=== PATIENT | female | born 1980 | race Caucasian/White ===

== ENCOUNTER 2016-02-09 17:48 | Inpatient (IN) | payer OTHER, BC ==
[2016-02-09] MEDS ORDERED: LIDOCAINE 1% (PRES FREE) 30 ML VIAL ONE (18:36)
[2016-02-09] MEDS ORDERED: OXYTOCIN 10 UNITS/ML VIAL ONE (18:36)
[2016-02-09] MEDS ORDERED: LACTATED RINGERS 1,000 ML ONE (18:36)
[2016-02-09] MEDS ORDERED: PUMP TUBING ONE (18:36)
[2016-02-09] MEDS ORDERED: IV START KIT ONE (18:36)
[2016-02-09] MEDS ORDERED: MINERAL OIL 25 ML BOT ONE (18:36)
[2016-02-09] MEDS ORDERED: LIDOCAINE Viscous 2% 15 ML UDCUP ONE (18:36)
[2016-02-09] MEDS ORDERED: OXYTOCIN IN LR 500 ML IV ONE ×2 (18:37→19:05)
[2016-02-09] MEDS ORDERED: SODIUM CHLORIDE 0.9% FLUSH 10 ML ONE (18:37)
[2016-02-09] MEDS ORDERED: LACTATED RINGERS 1,000 ML IV PRN ×2 (19:05→22:48)
[2016-02-09 19:10] LABS: HEMATOCRIT 40.8 % (37.0-47.0); HEMOGLOBIN 13.5 gm/l (12.0-16.0); MEAN CELL VOLUME 87.6 fl (81.0-99.0); MEAN CORPUSCULAR HGB CONC 33.1 g/dl (33.0-37.0); RED CELL DISTRIBUTION WIDTH 14.2 % (11.5-14.5)
[2016-02-09] MEDS ORDERED: EPIDURAL PUMP SET ONE (19:34)
[2016-02-09] MEDS ORDERED: FENTANYL/ROPIVACAINE EPIDURAL 250 ML EP ONE (19:35)
[2016-02-09 19:49] VITALS: BMI 35.5
[2016-02-09] MEDS ORDERED: NALBUPHINE HCL 20 MG/ML AMP IV PRN (20:05)
[2016-02-09] MEDS ORDERED: SODIUM CHLORIDE 0.9% 500 ML IV PRN (20:05)
[2016-02-09] MEDS ORDERED: METOCLOPRAMIDE HCL 5 MG/ML 2ML VIAL IV PRN (20:05)
[2016-02-09] MEDS ORDERED: FENTANYL/ROPIVACAINE EPIDURAL 250 ML EP SCH (20:05)
[2016-02-09] MEDS ORDERED: LACTATED RINGERS 500 ML IV PRN (20:05)
[2016-02-09] MEDS ORDERED: DIPHENHYDRAMINE HCL 50 MG/1 ML VIAL IV PRN (20:05)
[2016-02-09] MEDS ORDERED: ONDANSETRON 4 MG/2ML 2 ML VIAL IV PRN (20:05)
[2016-02-09] MEDS ORDERED: EPHEDRINE SULFATE 50 MG/ML 1ML VIAL IV PRN (20:05)
[2016-02-09] MEDS ORDERED: LACTATED RINGERS 1,000 ML IV SCH (20:05)
[2016-02-09] MEDS ORDERED: NALOXONE HCL 0.4 MG/ML VIAL IV PRN (20:05)
[2016-02-09] MEDS ORDERED: EPIDURAL PROCEDURE TRAY ONE (20:14)
[2016-02-09] MEDS ORDERED: ROPIVACAINE 0.5% 30 ML VIAL ONE (20:14)
--- NOTE | 2016-02-09 20:18 | PCMAN ---
OB Admission Note - History : 4 Term: 2 : 0 Abortions (S&E): 1 Livin EDC:: 02/14/16 Gestational Age (weeks): 39 Days (#/7): 2 Admit Cervical Dilation:: 3.5 Admit Cervical Effacement (%):: 75 Admit Station:: -2 Admit Presentaton:: cephalic Membrane Status: Intact Labor Onset (Date): 02/09/16 Labor Onset (Time): 16:30 Contractions: Yes Contraction Frequency:: every 2-5 minutes Heart Rate:: 150 Status:: cat 2 EFW:: 8# Summary of Course:: Uncomplicated pnc, presented in labor. - Labs Blood Type: B (+) positive Rubella Status: Immune GBS Status: Negative Abnormal Labs: None - Review of Systems Good FM, no lof, +vag mucousy dc with some blood. +uc's since earlier today. No YAN, vis changes or new swelling. Leg pain controlled with the acupuncture and massage. - Physical Exam General: Moderate Distress (with UC's.) Psych/Mental Status: Mood/Affect Appropriate Lungs: Clear to Auscultation Bilaterally Cardiovascular: Regular Rate and Rhythm, No Murmur Genitourinary: Normal Female Genitalia Extremities: No Edema Skin: Warm, Dry, No Rash - Problems (1) Normal labor Status: Acute Code: O80 Assessment/Plan: DOing well. Cat 1 FHT"s on admit. Desires epidural. Will admit, monitor per protocol. Reassuring well being. Plans discussed and questions answered.
[2016-02-09] MEDS ORDERED: MINERAL OIL 25 ML BOT TP ONE (22:25)
[2016-02-09] MEDS ORDERED: BENZOCAINE/MENTHOL 60 APPLIC/BOT TP PRN (22:48)
[2016-02-09] MEDS ORDERED: MAGNESIUM HYDROXIDE 30 ML UDCUP PO PRN (22:48)
[2016-02-09] MEDS ORDERED: LANOLIN 50 APPLIC/7G TUBE TP PRN (22:48)
[2016-02-09] MEDS ORDERED: CALCIUM CARBONATE 500 MG TAB.CHEW PO PRN (22:48)
--- NOTE | 2016-02-09 23:10 | PCMDEL ---
Delivery Note - Labor 1st stage (hr/min):: 5.5 hours 2nd stage (hr/min):: 13 min 3rd stage (hr/min):: 8 min Total (hr/min):: 6 hours Pushed (hr/min):: 13 min - Delivery Delivery (Date): 02/09/16 Delivery (Time): 22:14 Gender: Female Presentation: Cephalic Position: OA Umbilical Cord: 3 Vessel, True Knot, Nuchal Cord (X1, easily reduced.) Delayed Cord Clamping:: > 3 min Placenta:: wnl, complete EBL:: 400ml Perineum:: 2nd degree perineal repaired in usual fashion with 4-0 vicryl. Suture:: 4-0 vicryl Anesthesia/Meds:: epidural Length ROM:: 1.75 hours Comments:: of vigorous girl after reduction of loose nuchal cord. Repair of 2nd degree lac in usual fashion. Cat 1 FHT's. Minimal bleeding with active management of 3rd stage.
[2016-02-09] MEDS: IBUPROFEN 600 MG TABLET PO PRN (23:28)
[2016-02-10] MEDS: IBUPROFEN 600 MG TABLET PO PRN ×3 (05:22→18:18)
[2016-02-10 07:17] LABS: HEMATOCRIT 35.9 % (37.0-47.0); HEMOGLOBIN 11.6 gm/l (12.0-16.0)
[2016-02-10] MEDS: HYDROCODONE/ACETAMINOPHEN 5/325MG TABLET PO PRN ×3 (08:44→21:53)
[2016-02-10] MEDS: DOCUSATE SODIUM 100 MG CAPSULE PO PRN (08:44)
[2016-02-10] MEDS ORDERED: MUPIROCIN CALCIUM 2% OINT 22 APPLIC/22 G TUBE TP PRN (22:35)
[2016-02-10] MEDS ORDERED: HYDROCORTISONE 1% CREAM 20 APPLIC/30 G TUBE TP PRN (22:35)
--- NOTE | 2016-02-10 22:35 | PDOC44 ---
- Subjective Day: 1 Doing well. No fever, chills, cp, sob. Has persistent sciatica, but feels it is about as it is to be expected. Able to eat, ambulate and void. Reports Flatus, Reports Pain Tolerable, Reports , Reports Tolerating Regular Diet, Denies Nausea, Denies Vomiting - Objective Temp Pulse Resp BP Pulse Ox 98.2 F 65 16 128/61 02/10/16 21:55 02/10/16 21:55 02/10/16 21:55 02/10/16 21:55 Lab Results 02/10/16 07:03 Hgb 11.6 L Hct 35.9 L Current Medications Generic Name Dose Route Start Last Admin Trade Name Freq PRN Reason Stop Dose Admin Acetaminophen/Hydrocodone Bitart 1 - 2 tab 02/09/16 22:48 02/10/16 21:53 Errol 5/325 PO 1 tab Q4H PRN Administration Pain (Moderate) Benzocaine/Menthol 1 applic 02/09/16 22:48 02/09/16 23:28 Dermoplast TP 1 bot PRN PRN Administration Patient Comfort Calcium Carbonate/Glycine 500 - 1,000 mg 02/09/16 22:48 Tums PO BID PRN Indigestion Docusate Sodium 100 mg 02/09/16 22:48 02/10/16 08:44 Colace PO 100 mg DAILY PRN Administration Comfort Emollient Ointment 1 applic 02/09/16 22:48 02/10/16 05:22 [id number] TP 1 tube PRN PRN Administration sore nipples Ropivacaine/Fentanyl/NS 250 mls @ 0 mls/hr 02/09/16 20:05 02/09/16 20:16 Fentanyl 2 Mcg/Ml + Ropivacaine 0.125% Ep Bag EP 12 mls/hr EPI IRAJ Administration Protocol Per Protocol Lactated Ringer's 1,000 mls @ 100 mls/hr 02/09/16 22:48 Lactated Ringers IV .Q10H PRN Titrate per clinical situation Ibuprofen 600 mg 02/09/16 22:48 02/10/16 18:18 Motrin PO 600 mg Q6H PRN Administration Pain (Mild) Magnesium Hydroxide 30 ml 02/09/16 22:48 Milk Of Magnesia PO BEDTIME PRN Constipation Sodium Chloride 10 ml 02/09/16 19:05 02/09/16 18:45 Normal Saline 10ml Flush IV 10 ml PRN PRN Administration IV Flush - Physical Exam General: Afebrile, No Acute Distress Psych/Mental Status: Mood/Affect Appropriate, Bonding Well Neurological: Grossly Intact, Alert, Normal Gait, Normal Speech, Normal Reflexes HEENT: Atraumatic, Mucous membr. moist/pink Lungs: Clear to Auscultation Bilaterally Cardiovascular: Regular Rate and Rhythm Breast: Soft Fundus: Firm, Midline, Below Umbilicus Skin: Normal Color, Warm, Dry, Intact, No Rash - Problems:Assessment/Plan (1) (spontaneous vaginal delivery) Status: Acute Assessment/Plan: Doing well PPD#1 Routine PP care Support BF, h/o mastitis, already has blister on one nipple (2) Cracked nipple, condition or complication Status: Acute Assessment/Plan: Trial bactroban and HC prn consult Disposition: Stable, Anticipate DC Home Tomorrow
[2016-02-11] MEDS: IBUPROFEN 600 MG TABLET PO PRN ×2 (01:21→07:44)
[2016-02-11] MEDS: HYDROCODONE/ACETAMINOPHEN 5/325MG TABLET PO PRN (06:07)
[2016-02-11] MEDS: DOCUSATE SODIUM 100 MG CAPSULE PO PRN (07:44)
[2016-02-11 08:09] VITALS: BP 108/63
--- NOTE | 2016-02-11 08:12 | PDOC39B ---
Hospital Course: ADMIT DATE: 02/09/16 DISCHARGE DATE: 02/11/16 ADMISSION DIAGNOSES: Term Intrauterine Labor PROCEDURES/EVENTS: HOSPITAL COURSE: 35 year old at 39 3/7 weeks admitted in labor. Progressed for 5 _ hours , then delivered via with a 2nd degree laceration which was repaired. EBL 400 mL. course was uncomplicated except for a blister on one of her nipples which is stable. Ada also has some right sided sciatica which is stable , no leg weakness just shooting pain which is slowing improving. By the day of discharge the patient was ambulating, eating, voiding, and passing flatus without difficulty. Pain controlled and lochia appropriate. She is . Her will have a vasectomy for control. Pediatric provider is Dr. Nogueira. - Physical Exam Vital Signs: Temp Pulse Resp BP Pulse Ox 97.8 F 63 14 121/58 02/11/16 01:29 02/11/16 01:29 02/11/16 01:29 02/11/16 01:29 General: Afebrile Psych/Mental Status: Mood/Affect Appropriate, Judgment/Insight Intact, Bonding Well Neurological: Grossly Intact, Alert, Oriented x 4 Lungs: Clear to Auscultation Bilaterally, Normal Air Movement Cardiovascular: Regular Rate and Rhythm Fundus: Firm, At Umbilicus - Discharge Diagnosis (1) (spontaneous vaginal delivery) Status: Acute Assessment/Plan: Doing well PPD#2 Routine PP care Support BF, h/o mastitis, blister on nipple is stable, no signs of infection will send home with antibiotic ointment. OK to discharge today - Discharge Plan Condition: Stable Prescriptions: Mupirocin Calcium 2% [BACTROBAN 2% OINTMENT ([facility])] 1 applic TP TID PRN #1 tube PRN Reason: nipple pain Docusate Sodium [COLACE 100 MG CAPSULE ([facility])] 100 mg PO DAILY PRN #30 capsule PRN Reason: Comfort Hydrocortisone 1% [CORTAID 1% CREAM 30 G ([facility])] 1 applic TP TID PRN #1 tube PRN Reason: nipple pain Benzocaine/Menthol [DERMOPLAST SPRAY ([facility])] 1 applic TP PRN PRN #1 bot PRN Reason: Patient Comfort Ibuprofen [IBUPROFEN 600 MG TABLET ([facility])] 600 mg PO Q6H PRN #60 tablet PRN Reason: Pain (Mild) Hydrocodone Bit/Acetaminophen [NORCO 5/325 MG TABLET ([facility])] 1 - 2 tab PO Q4H PRN #20 tablet PRN Reason: Pain (Moderate) [id number]/Omega3/Dha/Fish Oil [ Gummies] 2 each PO DAILY #30 tab.chew Cetirizine HCl [ZYRTEC 10 MG TABLET ([facility])] 10 mg PO DAILY #30 tablet Follow-Up: Tracy Braden MD [Primary Care Provider] - In 6 weeks
== END 2016-02-11 11:15 | disposition home or self-care (01) | DRG 775 ==
LOC: FBCOUT 17:48 → FBC 18:23 → FBCOUT 18:40 → FBC 18:40
PROVIDERS: ADMIT Family Medicine; ATTEND Family Medicine
PROC: 10E0XZZ Delivery of Products of Conception, External Approach (ICD-10-PCS; principal; 2016-02-09)
PROC: 0KQM0ZZ Repair Perineum Muscle, Open Approach (ICD-10-PCS; 2016-02-09)
PROC: 00HU33Z Insertion of Infusion Device into Spinal Canal, Percutaneous Approach (ICD-10-PCS; 2016-02-09)
DX: O69.2XX0 Labor and delivery complicated by other cord entanglement, with compression, not applicable or unspecified (principal); O70.1 Second degree perineal laceration during delivery; O92.13 Cracked nipple associated with lactation; O75.89 Other specified complications of labor and delivery; M54.31 Sciatica, right side; Z3A.39 39 weeks gestation of pregnancy; Z37.0 Single live birth

== ENCOUNTER 2016-02-15 14:00 | Outpatient (CLI) | payer OTHER, BC | END 2016-02-15 14:01 | disposition home or self-care (01) | LOC: BABIESSH 14:00 | PROVIDERS: ATTEND Family Medicine | DX: Z39.1 Encounter for care and examination of lactating mother (principal) ==

== ENCOUNTER 2016-02-19 09:00 | Outpatient (CLI) | payer OTHER, BC | END 2016-02-19 09:01 | disposition home or self-care (01) | LOC: BABIESSH 09:00 | PROVIDERS: ATTEND Family Medicine | DX: Z39.1 Encounter for care and examination of lactating mother (principal) ==

== ENCOUNTER 2016-02-24 10:28 | Outpatient (CLI) | payer OTHER, BC | END 2016-02-24 10:29 | disposition home or self-care (01) | LOC: BABIESSH 10:28 | PROVIDERS: ATTEND Family Medicine | DX: Z39.1 Encounter for care and examination of lactating mother (principal) ==